=== PATIENT | male | born 1955 ===

== ENCOUNTER 2018-07-20 07:16 | Outpatient (CLI) | payer OTHER ==
[~2018-07-20] VITALS: Ht 152.4 cm; Wt 83.9 kg
== END 2018-07-20 07:35 | disposition home or self-care (01) ==
LOC: OFIC 805 07:16
DX: H69.83 Other specified disorders of Eustachian tube, bilateral (principal); J31.0 Chronic rhinitis; H61.23 Impacted cerumen, bilateral; R42 Dizziness and giddiness; H81.11 Benign paroxysmal vertigo, right ear